=== PATIENT | female | born 1970 | race Caucasian/White ===

== ENCOUNTER 2023-08-04 14:44 | Emergency (ER) | payer OTHER ==
[~2023-08-04] VITALS: Ht 167.6 cm; Wt 68.0 kg
[2023-08-04] MEDS ORDERED: Ketorolac Tromethamine 15mg Vial IV ONE (15:20)
[2023-08-04] MEDS ORDERED: FentaNYL Citrate 50 MCG/ML 2 ML Injection IV ONE ×2 (15:20→15:55)
[2023-08-04] MEDS ORDERED: Propofol 10mg/ml 20 ml Vial (Procedural) IV SCH (15:20)
[2023-08-04] MEDS ORDERED: Ondansetron HCl 2 MG / ML 2ML Vial IV ONE (15:20)
[2023-08-04] MEDS ORDERED: OXAYDO5 M1 PO ×2 (17:00→17:48)
[2023-08-04] MEDS ORDERED: RX Prepack 6 Tabs Oxycodone 5mg UD ONE (17:50)
== END 2023-08-04 17:25 | disposition home or self-care (01) ==
LOC: ER 14:44
DX: S52.501A Unspecified fracture of the lower end of right radius, initial encounter for closed fracture (principal); W18.30XA Fall on same level, unspecified, initial encounter; Y93.51 Activity, roller skating (inline) and skateboarding
CPT/HCPCS: 25605; 73100; 76000; 96374-59; 96375-59; 99152; 99153; 99283-25; A9270; J1885; J2405; J2704; J3010